=== PATIENT | male | born 1990 | race Caucasian/White ===

== ENCOUNTER 2016-05-18 15:35 | Emergency (ER) | payer MEDICARE, OTHER ==
[~2016-05-18 15:35] MED LIST: PHENERGAN25 MG PO
== END 2016-05-18 15:41 | disposition home or self-care (01) ==
LOC: CFTX 15:35
DX: G89.29 Other chronic pain (principal); M54.5 Low back pain; F31.9 Bipolar disorder, unspecified; F17.210 Nicotine dependence, cigarettes, uncomplicated; Z88.8 Allergy status to other drugs, medicaments and biological substances
CPT/HCPCS: 99283; J1885

== ENCOUNTER 2016-11-17 19:11 | Emergency (ER) | payer MEDICARE, OTHER ==
[~2016-11-17] VITALS: Ht 175.3 cm; Wt 83.9 kg
[2016-11-17 20:22] LABS: BUN/CREATININE RATIO 22.85; CREATININE SERUM 0.7 mg/dL (0.6-1.4); GLOM FILT RATE Estimated 129.4 mL/min (>60); POTASSIUM 3.8 mmol/L (3.5-5.1)
== END 2016-11-17 21:10 | disposition home or self-care (01) ==
LOC: CED 19:11
PROVIDERS: Emergency Medicine
DX: K52.9 Noninfective gastroenteritis and colitis, unspecified (principal); J45.909 Unspecified asthma, uncomplicated; F17.200 Nicotine dependence, unspecified, uncomplicated; Z88.8 Allergy status to other drugs, medicaments and biological substances
CPT/HCPCS: 80048; 96361; 96374; 99284; J2405